=== PATIENT | male | born 1990 | race Caucasian/White ===

== ENCOUNTER → 2025-07-07 07:49 | Outpatient (BNVA) | payer SELFPAY | PROVIDERS: PCP Internal Medicine; Visit Provider Physician Assistant Medical | DX: Z02.79 Encounter for issue of other medical certificate (principal) ==

== ENCOUNTER 2025-08-25 08:27 | Outpatient (AMB) | payer BC, SELFPAY ==
--- NOTE | 2025-08-25 07:48 | A.OFFPC_ITS ---
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 He reports the onset of what he thought was lower back pain about a month ago. His symptoms began after a four-wheeling trip, initially affecting his right side before shifting to the left. He experienced a distinct back injury while getting into his truck, which he felt immediately. The pain was localized, rated 8 out of 10 in severity, with no associated tingling or weakness in the legs, and it lasted for about a week and a half. Concerned about potential kidney issues, he went to urgent care and had a urinalysis, but no further labs were conducted. The patient also mentions an observation that his left-sided ribs seem to be higher than his right, though he acknowledges he may be hyper-focusing on it. He occasionally experiences chest tightness, which he believes may be related to panic or focusing on his heart rate, especially during stressful periods such as a recent trip with his children. He recalls a prior hospital visit for chest pain where an EKG and labs were normal. The patient has a past medical history of a broken shoulder and a surgically repaired hydrocele around age 15 or 16. He reports seasonal allergies in the fall, which cause nasal stuffiness and are relieved by [id number] Claritin. His family history is notable for a grandfather with diabetes. He denies any history of smoking, vaping, or illicit drug use but reports casual alcohol consumption three to four times a week, with two to three drinks per occasion. Medical History: - Shoulder fracture, history of - Seasonal allergies - History of chest pain with negative wo rkup (EKG and labs) Surgical History: - Hydrocele repair at age 15 or 16 - Shoulder surgery Medications: - Claritin, as needed for seasonal aller gies - Aleve, recently taken for back pain wi thout relief Family History: - Grandfather with diabetes Diagnostic Results: - Urinalysis: Performed at an urgent car e visit for back pain; results were unremarkable. - EKG and Labs: Performed at a prior [facility] pital visit for chest pain; results came back normal. Social History: - Substance Use: Denies smoking, vaping, marijuana, cocaine, and heroin use. - Alcohol Use: Reports drinking alcohol casually 3-4 times per week, consuming 2-3 drinks per occasion. 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 - Stressors: Reports increased stress le vels due to building a house, living in a rental, and having two children. - Exercise: Reports being less physicall y active recently but notes that symptoms were reduced when he was exercising more regularly. - Sexual History: Reports being sexually active. - Family Status: Has two children. [facility] Medical History (Updated 08/25/25 @ 08:54 by Darin Swain MD) Anxiety-like symptoms Allergic rhinitis At risk alcohol consumption Low back pain Family History (Updated 08/25/25 @ 08:37 by Bailee Ureña MA) Mother No problems noted. Father No problems noted. Social History Housing: House Patient Tobacco Use Status: Never used Tobacco e-Cigarette/Vaping Use: Never Used service: No Current occupational status: employed Cognitive needs: No Hearing needs: No Vision needs: No Questionnaire PHQ-9 Over the last 2 weeks, how often have you been bothered by any of the following problems? 1. Little interest or pleasure in doing things: not at all 2. Feeling down, depressed, or hopeless: not at all 3. Trouble falling or staying asleep, or sleeping too much: not at all 4. Feeling tired or having little energy: not at all 5. Poor appetite or overeating: not at all 6. Feeling bad about yourself - or that you are a failure or have let yourself or your family down: not at all 7. Trouble concentrating on things, such as reading the newspaper or watching television: not at all 8. Moving or speaking so slowly that other people could have noticed. Or the opposite - being so fidgety or restless that you have been moving around a lot more than usual: not at all 9. Thoughts that you would be better off or of hurting yourself in some way: not at all Total score: 0 Depression Screening Interpretation: Negative Depression Screening Done: Yes 34567 - PHQ-9 Billing: Yes Source: Developed by Drs. Hernandez Wesley, Berta Chiang, Brennon Otoole and colleagues, with an educational nikhil from [employer]. Thrive Questionnaire Date Thrive assessed: 08/25/25 I am a: Patient What is your living situation today?: I have a steady place to live Within the past 12 months, did the food you bought not last and you didn't have the money to get more?: Never true Within the past 12 months, did you worry whether your food would run out before you got money to buy more?: Never true Do you have trouble paying for medicines?: No Do you have trouble getting transportation to medical appointments?: No Do you have trouble paying your heating and electricity bill?: No Do you have trouble taking care of your child, family member or friend?: No Do you have trouble with day-to-day activities such as bathing, preparing meals, shopping, managing finances, etc.?: No Are you currently unemployed and looking for a job?: No Are you interested in more education?: No THRIVE Score: 0 AUDIT C Alcohol Use Questionnaire (AUDIT-C) 1. How often do you have a drink containing alcohol?: 2-4 times a month 2. How many drinks containing alcohol do you have on a typical day when you are drinking?: 3 or 4 3. How often do you have six or more drinks on one occasion?: Never Total Score: 3 Score Reviewed/Action Taken: Yes TONEY-7 AMB Questionnaire TONEY-7 Date TONEY - 7 assessed: 08/25/25 Feeling nervous, anxious, or on edge: 0 = Not at all Not being able to stop or control worryin = Not at all Worrying too much about different things: 0 = Not at all Trouble relaxin = Not at all Being so restless that it is hard to sit still: 0 = Not at all Becoming easily annoyed or irritable: 0 = Not at all Feeling afraid as if something awful might happen: 0 = Not at all Total TONEY-7 score (0-4 normal; 5-9 mild; 10-14 moderate; 15-21 severe): 0 Source: Developed by Drs. Hernandez Wesley, Berta Chiang, Brennon Otoole and colleagues, with an educational nikhil from [employer]. TONEY-7 Assessment Billing TONEY-7 Assessment Tool: TONEY-7 Assessment 00496 Review of Systems Narrative - General: Denies weight loss. - Allergic/Immunologic: Reports seasonal nasal congestion in the fall. - Cardiovascular: Reports occasional chest tightness and awareness of his heart rate, especially with stress. - Gastrointestinal: Denies diarrhea or constipation and reports normal eating. - Genitourinary: Reports normal urination. - Musculoskeletal: Reports lower back pain for the past month, rated as high as 8/10. - Neurological: Denies tingling or weakness in the legs. - Psychiatric: Reports increased stress and occasional panic-like symptoms. All systems reviewed & are unremarkable except as reviewed in HPI and above Physical exam (Primary Care) Vital Signs: Last Vital Signs Temp 99.1 F 08/25/25 08:33 Pulse 74 08/25/25 08:33 BP 128/80 08/25/25 08:33 Pulse Ox 99 08/25/25 08:33 Oxygen Delivery Method Room Air 08/25/25 08:33 BMI result Body Mass Index 26.1 Tobacco/Smoking Status: Tobacco use Status Tobacco use date assessed 08/25/25 08/25/25 07:49 Patient Tobacco Use Status Never used Tobacco 08/25/25 07:49 e-Cigarette/Vaping Use Never Used 08/25/25 07:49 PHQ-9: PHQ-9 Score PHQ-9: Total score 0 08/25/25 08:37 Depression Screening Interpretation: Negative Thrive Assessment: Date of Thrive Assessment Date Thrive assessed 08/25/25 08/25/25 07:49 Narrative General: Alert and oriented, Well nourished, No acute distress. Eye: Pupils are equal, round and reactive to light, Intact accommodation, Extraocular movements are intact, Normal conjunctiva, Vision unchanged. HENT: Normocephalic, Atraumatic, Tympanic membranes are clear, Normal hearing, Oral mucosa is moist, No pharyngeal erythema, Ear canals patent. Respiratory: Lungs CTA bilaterally, No wheeze, Respirations are non-labored. Cardiovascular: Regular rate, Regular rhythm, S1 auscultated, S2 auscultated, No murmur, Good pulses equal in all extremities, Normal peripheral perfusion, No edema. Gastrointestinal: Soft, Non-tender, Non-distended, Normal bowel sounds, No organomegaly. Musculoskeletal: Normal range of motion, Normal strength, No tenderness, No swelling, No deformity, Normal gait. Localized pain in the lower back, likely muscle strain. Integumentary: Warm, Dry, [place], Intact. Neurologic: Alert, Oriented, Normal sensory, Normal motor function, No focal defects, Cranial Nerves II-XII are grossly intact, Normal deep tendon reflexes. Psychiatric: Cooperative, Appropriate mood & affect, Normal judgment. Coding Level of Care Code New Pt Level 4 (24783) Complex EM visit Add On G2211 Diagnoses Chronic right-sided low back pain without sciatica M54.50; G89.29 Chronicity: chronic Back pain laterality: right Sciatica presence: without sciatica At risk alcohol consumption Z91.89 Seasonal allergic rhinitis, unspecified trigger J30.2 Allergic rhinitis trigger: unspecified Allergic rhinitis seasonality: seasonal Anxiety-like symptoms F41.9 Additional Codes PHQ-9 - 87241 - PHQ-9 Billing: Yes ([id number]) TONEY-7 Assessment Billing - TONEY-7 Assessment Tool: TONEY-7 Assessment 86063 ([id number]) Assessment & Plan Assessment & Plan (1) Low back pain: Comment: - The patient's presentation is most consistent with a musculoskeletal back strain. - An X-ray of the back will be obtained to rule out other pathology. - Management will start with physical therapy or increased activity at the gym, with Tylenol or ibuprofen as needed for pain. - Cyclobenzaprine 5 mg is prescribed to be taken up to three times daily as needed for severe pain or muscle spasm, with counseling on potential drowsiness. Code(s): M54.50 - Low back pain, unspecified Category: Medical Qualifiers: Chronicity: chronic Back pain laterality: right Sciatica presence: without sciatica Qualified Code(s): M54.50 - Low back pain, unspecified; G89.29 - Other chronic pain (2) At risk alcohol consumption: Comment: - The patient reports drinking 2-3 alcoholic beverages 3-4 times per week. - The patient was counseled on the importance of moderation due to potential effects on the liver. Code(s): Z91.89 - Other specified personal risk factors, not elsewhere classified Category: Social Hx (3) Allergic rhinitis: Comment: - The patient reports seasonal symptoms that are well-controlled with [id number] Claritin. - He can continue this as needed. Code(s): J30.9 - Allergic rhinitis, unspecified Category: Medical Qualifiers: Allergic rhinitis trigger: unspecified Allergic rhinitis seasonality: seasonal Qualified Code(s): J30.2 - Other seasonal allergic rhinitis (4) Anxiety-like symptoms: Comment: - The patient reports episodes of chest tightness and focusing on his heart rate during periods of high stress. - He was reassured that a prior workup was negative and that these symptoms can be stress-related. - He was encouraged to resume regular exercise, which he noted has helped alleviate these symptoms in the pas Code(s): F41.9 - Anxiety disorder, unspecified Category: Medical Plan: Health Maintenance: - Counseled on moderating alcohol consumption. - Discussed the importance of regular physical activity for both physical and mental well-being. - Ordered baseline screening labs including CBC, electrolytes, glucose, thyroid function, vitamin D, syphilis, HIV, and hepatitis panel. - Advised to return for yearly physical examinations. Patient was informed and verbally consented to the use of an ambient scribe for clinic note documentation during this visit. Plan I discussed with the patient that his presentation of low back pain is most consistent with a muscle strain. I explained that we would obtain X-rays for reassurance and recommended physical therapy or increased activity as initial management. We reviewed pain relief options, and I prescribed cyclobenzaprine for severe pain, cautioning him about its potential to cause drowsiness and to take it only as needed. I reassured him that his ribs appeared normal on examination, addressing his specific concern. We also discussed his alcohol use, and I counseled him on moderation. As he is a new patient, I ordered a comprehensive set of baseline labs and provided him with a QR code to access his patient portal to view results. I advised that a scheduled follow-up is not necessary at this time but that he should return for his yearly physical and call if any issues arise before then. Orders: Orders Comprehensive Met. Panel Today Z. - Encounter for general adult medical examination without abnormal findings TSH reflex Free T4 Today Z. - Encounter for general adult medical examination without abnormal findings XR lumbar spine 6V w bending Today M54.50 - Low back pain, unspecified Complete Blood Count Auto Diff Today Z. - Encounter for general adult medical examination without abnormal findings Hemoglobin A1c Today Z. - Encounter for general adult medical examination without abnormal findings Hepatitis A,B,C Profile Today Z. - Encounter for general adult medical examination without abnormal findings HIV Ab/Ag Today Z. - Encounter for general adult medical examination without abnormal findings Lipid Panel Today Z. - Encounter for general adult medical examination without abnormal findings Syphilis Screen Today Z. - Encounter for general adult medical examination without abnormal findings Vitamin D 25-OH Total Today Z00.00 - Encounter for general adult medical examination without abnormal findings Medications: New cyclobenzaprine 5 mg PO TID PRN 20 tabs 0RF muscle spasm Patient Instructions: - Please proceed to the lab across the [place] to have your blood drawn. - Please go to the imaging department at the back of the [facility] for your back X-ray. - A prescription for Cyclobenzaprine 5 mg, a muscle relaxant, has been sent to your pharmacy. - Take one pill only as needed when you have severe pain, up to three times a day, but do not take it if the pain is not bad. - Be aware that this medication may make you feel sleepy. - We recommend reducing your alcohol intake. - Try to increase your physical activity, such as going to the gym, as this will likely help your back pain and stress levels. - Use the provided QR code to set up your online patient portal, which will allow you to see your test results. - You do not need to schedule a follow-up visit at this time. - Please call our office to schedule your next yearly physical.
[2025-08-25 08:33] VITALS: BP 128/80; PULSE 74; TEMP 37.3; O2SAT 99; BMI 26.1
== END 2025-08-25 08:52 | disposition home or self-care (01) ==
LOC: HO.HMCHD 08:27
PROVIDERS: PCP Student in an Organized Health Care Education/Training Program; Visit Provider Student in an Organized Health Care Education/Training Program
DX: M54.50 Low back pain, unspecified (principal); G89.29 Other chronic pain; Z91.89 Other specified personal risk factors, not elsewhere classified; J30.2 Other seasonal allergic rhinitis; F41.9 Anxiety disorder, unspecified

== ENCOUNTER 2025-08-25 08:52 | Outpatient (REF) | payer BC, SELFPAY ==
--- NOTE | ~2025-08-25 | XR_ITS ---
EXAMINATION: XR LUMBOSACRAL SPINE CLINICAL INFORMATION: M54.50 - Low back pain, unspecified COMPARISON: None available. TECHNIQUE: Lateral views in neutral, flexion and extension position. AP view. FINDINGS: S-shaped curvature of the thoracolumbar spine with a levoconvex morphology in the upper segment and slightly dextroconvex at L4-5. Schmorl nodes in the endplates of the axial skeleton. There is a subtle 1 mm retrolisthesis at L2-3 which persists during flexion and extension position. No acute cortical disruption. No lytic or blastic lesions. XR/XR lumbar spine 6V w bending IMPRESSION: Scoliosis, mild and multilevel Schmorl nodes throughout the axial skeleton. Probable 1 mm retrolisthesis L2-3 without gross instability. Electronically signed by: Willie Gutiérrez MD 08/25/2025 09:29 AM RICK
[2025-08-25 09:56] LABS: MANUAL DIFF FLAG NO
[2025-08-25 10:08] LABS: Hematocrit 44.8 % (42.0-52.0); Hemoglobin 15.5 g/dl (14.0-18.0); Imm Gran Abs Auto 0.02 X10*3/uL (0.00-0.03); Imm Gran Pct Auto 0.3 % (0.0-0.4); Lymphocytes Absolute Auto 2.5 X10*3/uL (1.2-4.9); Mean Corpuscular HGB Conc 34.6 g/dl (31.0-36.0); Mean Corpuscular Hemoglobin 31.0 pg (27.0-33.0); Mean Corpuscular Volume 89.6 fL (80.0-98.0); NRBC Abs Auto 0.000 X10*3/uL (0.0-0.012); NRBC Pct Auto 0.0 /100WBC (0.0-0.2); Platelet Count 296 X10*3/uL (160-400); Red Blood Count 5.00 X10*6/uL (4.60-5.80); White Blood Count 7.8 X10*3/uL (4.8-10.8)
[2025-08-25 10:41] LABS: Alanine Aminotransferase 19 U/L (0-40); Albumin Level 5.0 g/dL (3.5-5.0); Alkaline Phosphatase 54 U/L (39-117); Anion Gap 11 (12-20); Aspartate Amino Transferase 24 U/L (5-37); Blood Urea Nitrogen 11 mg/dL (9-16); Calcium 9.6 mg/dL (8.4-10.2); Carbon Dioxide 28 mmol/L (22-29); Chloride 108 mmol/L (96-108); Cholesterol 200 mg/dL (<200); Estimated Glomerular Filt Rate > 60; HDL Cholesterol 66 mg/dL (>40); Potassium 4.2 mmol/L (3.3-5.1); Sodium 143 mmol/L (135-145); Total Protein 7.9 g/dL (6.5-8.0); Triglycerides 43 mg/dL (<150)
[2025-08-25 11:04] LABS: HBS Num1 0.00 mIU/mL (0-7.99); HBc Num1 0.05 S/CO (0.00-0.79); HBsAGNum1 0.56 S/CO (0.00-0.99); HIV Num 1 0.07 S/CO (0.00-0.99); Hepatitis A Antibody IgM 0.17 Index (0-0.79); Hepatitis B Surface Antigen Negative (Negative); Syphilis Screen Nonreactive (Nonreactive); ~HepC Num1 0.10 S/CO (0.00-0.79); ~Hepatitis A Antibody IgM Nonreactive (Nonreactive); ~Hepatitis B Surface Antibody NONREACTIVE (Nonreactive); ~Hepatitis C Antibody Nonreactive (Nonreactive)
== END 2025-08-25 08:53 | disposition home or self-care (01) ==
LOC: HO.10HDL 08:52
PROVIDERS: Visit Provider Student in an Organized Health Care Education/Training Program
DX: Z00.00 Encounter for general adult medical examination without abnormal findings (principal); M54.50 Low back pain, unspecified; G89.29 Other chronic pain; J30.2 Other seasonal allergic rhinitis; F41.9 Anxiety disorder, unspecified; Z13.1 Encounter for screening for diabetes mellitus; Z91.89 Other specified personal risk factors, not elsewhere classified
CPT/HCPCS: 36415; 72114; 80053; 80061; 82306; 83036; 84443; 85025; 86704; 86706; 86709; 86780; 86803; 87340; 87389; 96127

== ENCOUNTER → 2025-08-25 09:02 | Outpatient (BNV) | payer BC, SELFPAY | PROVIDERS: Visit Provider Radiology Diagnostic Radiology | DX: M54.50 Low back pain, unspecified (principal); M41.87 Other forms of scoliosis, lumbosacral region; M51.46 Schmorl's nodes, lumbar region | CPT/HCPCS: 72114 ==